=== PATIENT | female | born 1940 | race Hispanic/Latino ===

== ENCOUNTER 2023-01-23 13:00 | Outpatient (RCR) | payer MEDICARE, OTHER ==
[~2023-01-23 13:00] MED LIST: LIDOCAINE VISC 2% SOLN 15 ML UDC ONE; LIDOCAINE/PRILOCAINE 2.5-2.5% KIT ONE; MINERAL OIL/PETROLAT/GLYCERI 6OZ BTL ONE; MUPIROCIN 2% OINT 22 GM TUBE ONE; SUGAMMADEX SODIUM 200 MG/2 ML VIAL IV ONE; TRIAMCINOLONE ACET 0.1% CREAM 15 GM TUBE ONE
== END 2023-01-24 23:12 | disposition home or self-care (01) ==
LOC: WCC 13:00
PROVIDERS: ATTEND Family Medicine Adult Medicine
DX: R60.0 Localized edema (principal)
CPT/HCPCS: 87071; 87075; 87205

== ENCOUNTER 2023-02-22 13:02 | Outpatient (RCR) | payer MEDICARE, OTHER ==
[~2023-02-22 13:02] MED LIST changes: -LIDOCAINE/PRILOCAINE 2.5-2.5% KIT ONE; -SUGAMMADEX SODIUM 200 MG/2 ML VIAL IV ONE; -TRIAMCINOLONE ACET 0.1% CREAM 15 GM TUBE ONE
== END 2023-02-23 ==
LOC: WCC 13:02
PROVIDERS: ATTEND Internal Medicine Infectious Disease
DX: I83.018 Varicose veins of right lower extremity with ulcer other part of lower leg (principal); L97.818 Non-pressure chronic ulcer of other part of right lower leg with other specified severity; S80.811A Abrasion, right lower leg, initial encounter; R60.0 Localized edema